=== PATIENT | female | born 1935 | race Caucasian/White ===

== ENCOUNTER 2016-08-05 07:16 | Inpatient (IN) | payer OTHER ==
[~2016-08-05] VITALS: Ht 156.2 cm; Wt 47.1 kg
[~2016-08-05 07:16] MED LIST: ALPRAZOLAM0.25 M2 PO; LO-DOSE ASPIRIN81 M2 PO; LOSARTAN POTASS25 MG PO; LYRICA75 MG PO; METOPROLOL TA37.5 MG PO; ONCE DAILY1 EACH PO; PRAVASTATIN SOD40 MG PO; PREDNISONE10 MG PO; SPIRONOLACTONE25 MG PO; TYLENOL REGULA325 MG PO; VALIUM5 MG PO
[2016-08-05 08:18] LABS: EOSINOPHIL (%) 0 % (0-5); HEMATOCRIT 37.2 % (36.0-46.0); IMMATURE GRANULOCYTE (%) 0.5 % (0.0-0.7); IMMATURE GRANULOCYTE COUNT 0.7 K/uL; LYMPHOCYTE COUNT 0.7 K/uL (1.0-2.8); MCH 31.9 PG (29.0-34.0); MCHC 34.1 G/DL (30.0-36.0); MCV 93.5 FL (83-99); MEAN PLAT.VOLUME 11.6 uM^3 (9.5-12.4); MONOCYTE (%) 5.4 % (3-12); MONOCYTE COUNT 0.8 K/uL (0-0.8); NEUTROPHIL (%) 89.5 % (45-76); NEUTROPHIL COUNT 13.9 K/uL (1.8-6.4); PLATELET COUNT 182 K/uL (156-360); RBC DIS.WIDTH-CV 13.4 % (11.8-14.6); RBC DIS.WIDTH-SD 44.3 % (39-53); RED BLOOD COUNT 3.98 M/uL (3.80-5.20); WHITE BLOOD COUNT 15.5 K/uL (4.1-10.2)
[2016-08-05 08:38] LABS: INTER. NORMALIZED RATIO 1.2; PROTHROMBIN TIME 12.5 (9.2-11.2)
[2016-08-05 08:40] LABS: AMYLASE 53 IU/L (1-118); CHLORIDE 101 mEq/L (99-109); POTASSIUM 4.8 mEq/L (3.7-5.4); SODIUM 134 mEq/L (136-147)
[2016-08-05 08:42] LABS: GLUCOSE 136 mg/dL (70-99)
[2016-08-05 08:43] LABS: ANION GAP 16 MEQ/L (2-14)
[2016-08-05 08:45] LABS: SERUM ETHYL ALCOHOL < 10 mg/dL
[2016-08-05 08:46] LABS: GFR ESTIMATE (CALCULATED) 50 mL/min/; TROP-I INTERPRETATION POSITIVE; TROPONIN-I 13.91 ng/mL (0.0-0.30)
[2016-08-05 08:47] LABS: UREA NITROGEN (BUN) 28 mg/dL (9-23)
[2016-08-05 08:49] LABS: LIPASE 117 U/L (1.0-51.0)
[2016-08-05 09:09] LABS: PTT > 150.0 (25-32)
[2016-08-05] MEDS ORDERED: ONE DAILY TABL1 EAC1 PO (10:57)
[2016-08-05] MEDS ORDERED: DIAZEPAM5 MG PO (10:57)
[2016-08-05] MEDS ORDERED: SPIRONOLACTONE25 MG PO (10:58)
[2016-08-05] MEDS ORDERED: METOPROLOL TART25 MG PO (10:58)
[2016-08-05 12:00] VITALS: BP 106/68
[2016-08-05 15:38] LABS: INTER. NORMALIZED RATIO 1.1; PROTHROMBIN TIME 11.5 (9.2-11.2)
[2016-08-05 15:50] LABS: PTT 35.2 (25-32)
== END 2016-08-06 01:27 ==
LOC: EME → EDBD 07:16 → EDOF 10:25 → 5EAST 10:25 → EDOF 10:49 → 5EAST 11:39
PROVIDERS: Emergency Medicine
DX: I50.23 Acute on chronic systolic (congestive) heart failure (principal); I21.3 ST elevation (STEMI) myocardial infarction of unspecified site; J44.1 Chronic obstructive pulmonary disease with (acute) exacerbation; I95.9 Hypotension, unspecified; G62.9 Polyneuropathy, unspecified; I25.10 Atherosclerotic heart disease of native coronary artery without angina pectoris; R09.02 Hypoxemia; I25.5 Ischemic cardiomyopathy; I73.00 Raynaud's syndrome without gangrene; Z51.5 Encounter for palliative care; Z66 Do not resuscitate; I25.2 Old myocardial infarction; Z90.49 Acquired absence of other specified parts of digestive tract; Z87.891 Personal history of nicotine dependence
CPT/HCPCS: 71010; 80048; 81003; 82150; 83690; 84484; 85025; 85610; 85730; 86850; 86900; 86901; 93005; 94640; 94640 76; 94799; 99202; 99281; 99285; G0480; J2270; J2405; J7030